=== PATIENT | female | born 1945 | race Caucasian/White ===

== ENCOUNTER 2022-11-06 11:55 | Outpatient (CLI) | payer OTHER, SELFPAY ==
[2022-11-06 18:38] LABS: Anion Gap 5 mmol/L (8-16); Blood Urea Nitrogen 24 mg/dL (7-17); Calcium 9.5 mg/dL (8.4-10.2); Carbon Dioxide 30 mmol/L (22-30); Chloride 102 mmol/L (98-107); Cholesterol 183 mg/dL (0-200); Estimated Glomerular Filt Rate > 60; Glucose 93 mg/dL (65-110); HDL Direct 51 mg/dL; Potassium 4.4 mmol/L (3.4-5.0); Sodium 137 mmol/L (137-145); Triglycerides 69 mg/dL (<150)
[2022-11-06 18:49] LABS: Hematocrit 44.5 % (37.0-47.0); Hemoglobin 13.8 g/dL (12.0-15.0); LDL Cholesterol Direct 100 mg/dL; Mean Corpuscular Hemoglobin 31.7 pg (26-34); Mean Corpuscular Volume 102.1 fl (80-100); Platelet Count Result 217 k/mm3 (150-375); Red Blood Count 4.36 M/mm3 (4.2-5.4); Red Cell Distribution Width 12.8 % (11.5-14.5); White Blood Count 7.7 K/mm3 (4.5-10.0)
== END 2022-11-06 11:56 | disposition home or self-care (01) ==
PROVIDERS: PCP Nurse Practitioner Adult Health; Visit Provider Nurse Practitioner Adult Health
DX: L65.9 Nonscarring hair loss, unspecified (principal); E66.3 Overweight
CPT/HCPCS: 36415; 80048; 80061; 84443; 85027

== ENCOUNTER 2022-12-11 12:57 | Outpatient (CLI) | payer OTHER, SELFPAY ==
--- NOTE | ~2022-12-11 | XR_ITS ---
EXAM: XR_[id number]_CR DATE: 12/11/2022 13:12 HISTORY: RT DORSAL FOOT PAIN X 1 YEAR . COMPARISON: None available. FINDINGS: Decreased mineralization. No fracture or dislocation. No lytic or blastic lesion. Mild lupillo lux valgus. Mild scattered degenerative change. Os navicularis. Mild Achilles and moderate plantar en thesopathy. Mild loss of the longitudinal arch. No erosion or periosteal change. Soft tissues within normal limits. IMPRESSION: Pes planus. Polyarticular osteoarthritis. Hallux valgus. Moderate plantar enthesopathy. Reviewed, dictated and finalized at location K. IMPRESSION: Pes planus. Polyarticular osteoarthritis. Hallux valgus. Moderate p lantar enthesopathy.
== END 2022-12-11 12:58 | disposition home or self-care (01) ==
LOC: ANHBWCIMG 12:59
PROVIDERS: PCP Nurse Practitioner Adult Health; Visit Provider Orthopaedic Surgery
DX: M79.671 Pain in right foot (principal); M21.41 Flat foot [pes planus] (acquired), right foot; M19.071 Primary osteoarthritis, right ankle and foot; M20.11 Hallux valgus (acquired), right foot
CPT/HCPCS: 73630

== ENCOUNTER 2023-04-25 11:40 | Outpatient (CLI) | payer OTHER, SELFPAY ==
[2023-04-25 18:48] LABS: Hematocrit 46.3 % (37.0-47.0); Hemoglobin 14.5 g/dL (12.0-15.0); Mean Corpuscular HGB Conc 31.3 g/dl (32-36); Mean Corpuscular Hemoglobin 31.5 pg (26-34); Mean Corpuscular Volume 100.4 fl (80-100); Platelet Count Result 195 k/mm3 (150-375); Red Blood Count 4.61 M/mm3 (4.2-5.4); Red Cell Distribution Width 12.7 % (11.5-14.5); White Blood Count 5.4 K/mm3 (4.5-10.0)
[2023-04-25 19:35] LABS: Iron 146 ug/dL (37-170)
[2023-04-25 19:44] LABS: Percent Iron Saturation 61 % (20-50)
[2023-04-25 19:45] LABS: Anion Gap 7 mmol/L (8-16); Blood Urea Nitrogen 16 mg/dL (7-17); Calcium 9.1 mg/dL (8.4-10.2); Carbon Dioxide 28 mmol/L (22-30); Chloride 104 mmol/L (98-107); Estimated Glomerular Filt Rate > 60; Glucose 85 mg/dL (65-110); Potassium 4.7 mmol/L (3.4-5.0); Sodium 139 mmol/L (137-145)
[2023-04-25 20:52] LABS: Folic Acid > 20.0 ng/mL (2.76->20)
== END 2023-04-25 11:41 | disposition home or self-care (01) ==
PROVIDERS: PCP Nurse Practitioner Adult Health; Visit Provider Nurse Practitioner Adult Health
DX: L65.9 Nonscarring hair loss, unspecified (principal)
CPT/HCPCS: 36415; 80048; 82607; 82728; 82746; 83540; 83550; 84439; 84443; 85027

== ENCOUNTER 2023-04-30 13:33 | Outpatient (CLI) | payer OTHER, SELFPAY ==
--- NOTE | ~2023-04-30 | XR_ITS ---
EXAM: XR knee LT min 4V DATE: 04/30/2023 13:49 HISTORY: Pain in left knee . COMPARISON: 11/06/2011 MRI left knee. FINDINGS: Decreased mineralization. No fracture or dislocation. No lytic or blastic lesion. Moderate medial joint space narrowing. Moderate tricompartmental osteophytosis. Several ossific bodies projec t over the intercondylar notch. Quadriceps enthesopathy. Small joint effusion. No erosion or perioste al change. Soft tissues within normal limits. IMPRESSION: Moderate tricompartmental left knee osteoarthritis, most severe in the medial compartment . Multiple possible loose joint bodies projecting over the intercondylar notch. Reviewed, dictated and finalized at location K. [employer] IMPRESSION: Moderate tricompartmental left knee osteoarthritis, most severe in the medial compartment. Multiple possible loose joint bodies projecting over th e intercondylar notch.
== END 2023-04-30 13:34 | disposition home or self-care (01) ==
LOC: ANHBWCIMG 13:35
PROVIDERS: PCP Nurse Practitioner Adult Health; Visit Provider Orthopaedic Surgery
DX: M25.562 Pain in left knee (principal); M17.12 Unilateral primary osteoarthritis, left knee
CPT/HCPCS: 73564

== ENCOUNTER 2023-06-03 08:08 | Emergency (ER) | payer OTHER, SELFPAY ==
--- NOTE | ~2023-06-03 | XR_ITS ---
EXAMINATION: XR knee LT 3V DATE: 06/03/2023 08:57 INDICATION: Left knee pain. TECHNIQUE: 3 views of left knee were obtained. COMPARISON: Left knee radiographs 04/30/2023 FINDINGS: Bone alignment is normal. No fracture. There is moderate osteoarthritis of medial compartme nt and mild osteoarthritis of lateral and patellofemoral compartments. No knee joint effusion. IMPRESSION: 1. Moderate left knee osteoarthritis. Reviewed, dictated and finalized at location A. MBLER PIANO
[2023-06-03 08:33] VITALS: BP 112/64; PULSE 72; RESP 18; TEMP 36.7; O2SAT 94
--- NOTE | 2023-06-03 08:37 | ED.LOWEXIN ---
HPI - Extremity Injury (Lower) General Chief Complaint: Extremity Injury, Lower Stated Complaint: left knee gave out on me Time Seen by Provider: 06/03/23 08:13 History of Present Illness HPI Narrative: Patient is a 77-year-old female who presents ER with left knee pain. Reports she is trying to get off the toilet earlier this morning when her left knee gave out. She recently had a corticosteroid injection in the same knee. She has known arthritis. She also thinks she felt a pop. No new swelling or redness. No fevers or chills or sweats. She has pain with bearing weight that is increased from her previous pain. Related Data Home Medications Medication Instructions Recorded Confirmed Biotin [facility] 11/06/22 04/30/23 Collagen Peptides [facility] 11/06/22 04/30/23 Fish oil [facility] 11/06/22 04/30/23 Mag Citrate [facility] 11/06/22 04/30/23 Metronidazole [facility] 11/06/22 04/30/23 Saw [place] [facility] 11/06/22 04/30/23 spironolactone 100 mg tablet 100 mg PO DAILY 11/06/22 04/30/23 Allergies Allergy/AdvReac Type Severity Reaction Status Date / Time No Known Allergies Allergy Unverified 06/03/23 08:40 Review of Systems Constitutional: Constitutional: Reports no additional constitutional complaints Musculoskeletal: Musculoskeletal: Denies myalgias, Reports arthralgias, Denies joint swelling and Denies muscle cramps Integumentary/Breasts: Skin/Breast: Reports system reviewed and no additional complaints, except as docu Neurologic: Reports system reviewed and no additional complaints, except as documented [facility] Past Medical History Medical History (Updated 06/03/23 @ 09:29 by Juan Ortiz MD) Arthritis of knee, left Asthma Left knee pain MCL sprain of left knee Right foot sprain Surgical History Surgical History H/O: hysterectomy (~1993) Hx of cholecystectomy (~1996) Family History Family History Father Family history of malignant neoplasm of brain Mother Family history of malignant neoplasm of breast in first degree relative Sibling Disorder of thyroid Other Family history of alcoholism Social History Social History Smoking status: Former smoker Second hand tobacco smoke exposure: No Alcohol intake: never Substance use: never Lack of Transportation: No Lack of Food: Never True Current Housing: I Have Housing Concerned About Future Housing: No Difficulty Paying Gas/Electric Bills: No Difficulty Paying for Meds: No Currently Unemployed: No Education: Associate Degree Difficulty w/ Childcare or Family Care: No Living arrangements: alone Occupation/Education: occupation 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 HEAD: Normocephalic, atraumatic. ENT: Mucous membranes moist. HEART: Regular rate and rhythm. Normal peripheral pulses. EXTREMITIES: Left knee with no joint line tenderness, varus and valgus stressing normal, no effusion or redness. Bruising left anterior moreno. normal range of motion. SKIN: Warm, dry, no rash. NEURO: Alert and oriented x3. PSYCH: Normal mood and affect. Course Course Emergency Course: Discussed imaging results. Patient would like to try a knee immobilizer. She does not require crutches because she has a walker at home. Likely an arthritis flare. Vital Signs Vital signs: Vital Signs Temperature 98.0 F 06/03/23 08:33 Pulse Rate 72 06/03/23 08:33 Respiratory Rate 18 06/03/23 08:33 Blood Pressure 112/64 06/03/23 08:33 Pulse Oximetry 94 06/03/23 08:33 Oxygen Delivery Room Air 06/03/23 08:33 Temperature 98.0 F 06/03/23 08:33 Pulse Rate 72
[2023-06-03 09:49] VITALS: BP 107/69; PULSE 70; RESP 18; TEMP 36.6; O2SAT 98
== END 2023-06-03 09:51 | disposition home or self-care (01) ==
PROVIDERS: Emergency Provider Emergency Medicine; PCP Nurse Practitioner Adult Health
DX: M17.12 Unilateral primary osteoarthritis, left knee (principal); J45.909 Unspecified asthma, uncomplicated; Z90.710 Acquired absence of both cervix and uterus; Z90.49 Acquired absence of other specified parts of digestive tract; Z87.891 Personal history of nicotine dependence
CPT/HCPCS: 73562; 99283

== ENCOUNTER 2023-10-15 09:40 | Outpatient (CLI) | payer OTHER, SELFPAY ==
--- NOTE | ~2023-10-15 | XR_ITS ---
Clinical Indication: Smoker, asthma PA and lateral views of the chest: Comparison: 02/28/2018 Findings: The lungs are clear, without evidence of focal consolidation or pleural effusion. Cardiome diastinal silhouette is within normal limits. Bones and soft tissues are unremarkable. Impression: Normal chest. Reviewed, dictated and finalized at location . Impression: Normal chest.
== END 2023-10-15 09:41 | disposition home or self-care (01) ==
LOC: ANHBWCIMG 09:41
PROVIDERS: PCP Nurse Practitioner Adult Health; Visit Provider Nurse Practitioner Adult Health
DX: J45.909 Unspecified asthma, uncomplicated (principal)
CPT/HCPCS: 71046

== ENCOUNTER 2024-06-19 09:28 | Emergency (ER) | payer MEDICARE, SELFPAY ==
--- NOTE | 2024-06-19 09:44 | ED_ITS ---
HPI - URI/Sore Throat General Chief Complaint: Upper Respiratory Infection Stated Complaint: chest congestion/ tightness in chest Time Seen by Provider: 06/19/24 09:55 Source: patient, RN notes reviewed and old records reviewed Mode of arrival: ambulatory Limitations: no limitations History of Present Illness HPI Narrative: 78-year-old female presents to the [facility] with complaints of cough, chest congestion that started last night. Patient denies fevers, chest pain. States that when she coughs that her chest gets a little more tighter than normal. Has a history of asthma Did use inhaler, no other treatment prior to arrival Onset (ago): hour(s) (12) Related Data Home Medications ?Medication ?Instructions ?Recorded ?Confirmed ?Last Taken ?Type Biotin [facility] 11/06/22 11/12/23 Unknown History Collagen Peptides [facility] 11/06/22 11/12/23 Unknown History Fish oil [facility] 11/06/22 11/12/23 Unknown History Mag Citrate [facility] 11/06/22 11/12/23 Unknown History Metronidazole [facility] 11/06/22 11/12/23 Unknown History Saw [place] [facility] 11/06/22 11/12/23 Unknown History spironolactone 100 mg tablet 100 mg PO DAILY 11/06/22 11/12/23 Unknown History Allergies Allergy/AdvReac Type Severity Reaction Status Date / Time No Known Allergies Allergy Unverified 06/19/24 09:49 Review of Systems Review of Systems: All systems reviewed & are unremarkable except as noted in HPI and below Constitutional: Constitutional: Reports no additional constitutional complaints ENT: Reports system reviewed and no additional complaints, except as documented Cardiovascular: Cardiovascular: Reports no additional cardiovascular complaints, Denies chest pain and Denies dyspnea Respiratory: Respiratory: Reports as per HPI, Reports chest congestion, Reports cough, Denies dyspnea and Denies wheezing Musculoskeletal: Musculoskeletal: Reports no additional musculoskeletal complaints Integumentary/Breasts: Skin/Breast: Reports system reviewed and no additional complaints, except as docu [facility] Past Medical History Medical History MCL sprain of left knee Arthritis of knee, left Left knee pain Right foot sprain Asthma Surgical History Surgical History Hx of cholecystectomy (~1996) H/O: hysterectomy (~1993) Family History Family History Father Family history of malignant neoplasm of brain Mother Family history of malignant neoplasm of breast in first degree relative Sibling Disorder of thyroid Other Family history of alcoholism Social History Social History Smoking status: Former smoker Second hand tobacco smoke exposure: No Alcohol intake: never Substance use: never Lack of Transportation: No Lack of Food: Never True Current Housing: I Have Housing Concerned About Future Housing: No Difficulty Paying Gas/Electric Bills: No Difficulty Paying for Meds: No Currently Unemployed: No Education: Associate Degree Difficulty w/ Childcare or Family Care: No Living arrangements: alone Occupation/Education: occupation 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 There is no relevant family history perti nent to the patient complaint. Exam Const: General: cooperative, healthy appearing, comfortable, no acute distress, well developed, alert and well nourished Nutritional Appearance: well nourished Orientation/consciousness: patient oriented x3 Limitations: no limitations HENMT: Head: normal to inspection Ears: hearing grossly normal bilaterally, external ears normal, TM's normal bilaterally, EAC's normal, mastoids normal and no periauricular adenopathy Face/Nose/Sinus: Normal external nose present and No nasal discharge present Face and sinus: normal facial exam and face symmetric Mouth: Yes Normal oral and palatal mucosa present, Yes lip normal, Yes tongue normal and Yes moist mucous membranes Throat: posterior oropharynx normal, uvula midline and no uvular edema Eyes: General: appearance normal, both eyes and all related structures Alignment and Position: alignment normal Neck: Neck: normal visual inspection, full ROM, no lymphadenopathy and no meningeal signs Chest: Chest palpation & inspection: normal inspection of the chest Resp: Effort & Inspection: normal respiratory effort and able to speak in complete sentences Auscultation: clear to auscultation bilaterally, no crackles, no rales, no rhonchi and no wheezes Cardio: Rate: regular rate Skin: General skin exam: normal color and no rashes or lesions noted Neuro: General: patient oriented x3, gait normal, moves all extremities and no meningeal signs Cognition (Neuro): normal cognition Speech: normal speech Gait exam (Neuro): Normal gait present Extrem: General: normal to inspection, full ROM, capillary refill normal and normal gait Psych: Appearance: grossly normal and well kempt Mental Status: mental status grossly normal Speech and movement: Normal speech and movement present and Clear speech present Affect: normal affect Attitude: cooperative Course Course Level of Care: Express Care Visit Vital Signs Vital signs: Vital Signs Temperature 97.7 F 06/19/24 09:46 Pulse Rate 86 06/19/24 09:46 Respiratory Rate 16 06/19/24 09:46 Blood Pressure 126/69 06/19/24 09:46 Pulse Oximetry 96 06/19/24 09:46 Oxygen Delivery Room Air 06/19/24 09:46 Temperature 97.7 F 06/19/24 09:46 Pulse Rate 86 06/19/24 09:46 Respiratory Rate 16 06/19/24 09:46 Blood Pressure 126/69 06/19/24 09:46 Pulse Oximetry 96 06/19/24 09:46 Oxygen Delivery Room Air 06/19/24 09:46 Reviewed MDM - URI/Sore Throat MDM Narrative Medical decision making narrative: Patient sitting comfortably in exam room. Nontoxic, vitals stable. Patient in no acute distress. Patient presents with increased cough for the last 12 hours. Did use her inhaler. Patient's flu and COVID negative No acute findings and noted on exam. Lungs were clear. Patient appropriate for outpatient treatment with close follow-up Discharge instructions reviewed with patient, as well as provided in writing per nursing staff. The instructions also include specific and strict return/GO TO THE ER as well as f/u information. All questions have been answered, and the patient deny any further questions with discharge and discharge plan. Some parts of this dictation were generated by voice recognition software and may contain typographical and/or grammatical inaccuracies. Differential Diagnosis Differential diagnosis: Likely upper respiratory infection, otitis media, viral infection, bronchitis and influenza Lab Data Labs: Lab Results 06/19/24 Range/Units 09:46 POC Influenza A Ag Negative (Negative) POC Influenza B Ag Negative (Negative) POC SARS CoV-2 Ag Negative (Negative) Reviewed Critical Care Time Critical Care Time Critical Care Time: No Discharge Plan Discharge Clinical Impression: History of asthma Upper respiratory infection Qualifiers: URI type: unspecified viral URI Qualified Code(s): J06.9 - Acute upper respiratory infection, unspecified Patient Disposition: Home, Self-Care Condition: Stable Instructions: Upper Respiratory Infection (ED) Additional Instructions: Your rapid COVID test were negative Your rapid flu test was negative Use your inhaler every 4-5 hours while awake It is very important to treat your symptoms. Drink plenty of water, Gatorade, Pedialyte, ice pops or Jell-O. -Alternate Tylenol and Motrin per package directions for fever or pain. You can alternate every 4 hours -Antihistamine medication such as Zyrtec/Claritin/Rosario during the day can help improve symptoms. -doing daily nasal irrigations can help relieve pressure your sinuses. Things like a Neti pot -Use Flonase twice a day for 5 days then daily to help reduce the inflammation and dry up your sinuses. -You can also use Mucinex. Be sure to drink plenty of water with this medication at least 8 ounces with every dose and it is important to drink 8 to 10 glasses of water per day. Water is a natural decongestant -Eat and drink things that are easy to swallow, like tea or soup, or popsicles. -Oral rinses such as: Salt water gargles and/or may use topical anesthetic (eg. Chloraseptic spray) or lozenges to relieve dryness or throat pain). -Frequent hand washing or hand auto repair technician is one of the best ways to prevent spread of infection. -Using a vaporizer or humidifier at night will also help thin secretions and help with coughing up phlegm. -Follow up with primary care provider in 7-10 days if condition is not improving - For new or worsening symptoms go directly to the nearest ER Patient Language: Thai Prescriptions: New prednisone 20 mg tablet See Rx Instructions .Route .COMPLEX Qty: 9 0RF Rx Instructions: Take 40 mg daily for 3 days, 20 mg daily for 3 days No Action Fish oil [facility] Rx Instructions: 1400mg Daily Biotin [facility] Rx Instructions: 5000mcg daily spironolactone 100 mg tablet 100 mg PO DAILY [place] [facility] Rx Instructions: daily Mag Citrate [facility] Rx Instructions: 200mg daily Collagen Peptides [facility] Rx Instructions: 10gm Metronidazole [facility] fluticasone propion-salmeterol [Advair Diskus] 250-50 mcg/dose blister with device 1 inh inhalation BID Qty: 60 6RF naproxen 375 mg tablet 375 mg PO BID Qty: 14 0RF tramadol 50 mg tablet 50 mg PO Q6H PRN (Reason: pain) Qty: 30 1RF methocarbamol 500 mg tablet 500 mg PO BID PRN (Reason: muscle cramps) Qty: 20 0RF albuterol sulfate 90 mcg/actuation HFA aerosol inhaler See Rx Instructions .ROUTE .COMPLEX Qty: 18 6RF Dose Instruction: INHALE 2 PUFFS BY MOUTH EVERY 4 TO 6 HOURS NEEDED FOR SHORTNESS OF BREATH OR WHEEZING Rx Instructions: INHALE 2 PUFFS BY MOUTH EVERY 4 TO 6 HOURS NEEDED FOR SHORTNESS OF BREATH OR WHEEZING Follow-up/Referrals: UNKNOWN,DOCTOR [Primary Care Provider] - Time of Disposition: 10:05
[2024-06-19 09:46] VITALS: BP 126/69; PULSE 86; RESP 16; TEMP 36.5; O2SAT 96
[2024-06-19 09:50] LABS: EDCOVIDSCREEN Negative (Negative); EDINFLUASCREEN Negative (Negative); EDINFLUBSCREEN Negative (Negative)
--- OUTSIDE RECORDS SUMMARY | 2024-06-19 09:53 | XMS_ITS | Encounter Summary ---
Author Organization [facility] Address [address] [place] [address] Care Team Providers Care President And Ceo Name Role Phone Torie Waldron MD Primary Care Provider [phone] Reason for Visit * Reason Onset Date Comments Post Op 03/24/2024 Home health comi dhara, no issues: home health seeing patient without problemsPain management: Taking Tramadol twice a day, patient feels tylenol doesn't really help too muchBlood Thinner: taking Aspirin 81 mg twice a day as prescribedLast BM: no issuesPt attended the TJR class. Attended zoom classPt has f/u appointment scheduled with the surgeon.scheduled appointment 03/31/[address] Marie Encounter Details Date Type Department Care Team (Late st Contact Info) Description 03/24/2024 Telephone [facility] [place] [id number] [facility] [address] [place] [id number] Matthew Acosta RN Post Op (Home health coming, no issues: home health seeing patient without problems//Pain management: Taking Tramadol twice a day, patient feels tylenol doesn't really help too much//Blood Thinner: taking Aspirin 81 mg twice a day as prescribed//Last BM: no issues//Pt attended the TJR class. Attended zoom class//Pt has f/u appointment scheduled with the surgeon.scheduled appointment 03/31/[address] Marie) Social History Tobacco Use Types Packs/Day Years Used Date Smoking Tobacco: Former Cigarettes 1 15 - 1976 Smokeless Tobacco: Never Alcohol Use Standard Drinks/Week Comments Not Currently 0 (1 standard drink = 0.6 oz pur e alcohol) Overall Financial Resource Strain (CARDIA) Answe r Date Recorded How hard is it for you to pa y for the very basics like food, housing, medical care, and heating? Not hard at all 03/18/2024 PHQ-2 Answer Date Recorded PHQ-2 Total Score 0 02/11/2024 Housing Answer Date Recorded What is your living situation today? I have a [facility] place to live 03/18/2024 Lives With child(clarence), adult 03/18/2024 Living Arrangements adult family home 03/18/2024 Problems Not on file 03/18/2024 Vaping Answer Date Recorded Vaping Use Status Never user 02/11/2024 IP Discharge Planning Review Answer Amish e Recorded In the past 12 months have y ou experienced difficulty with any of the following? No difficulties reported 03/17/2024 Alcohol Use History Answer Date Recorde d Alcohol use Not Currently 03/13/2024 Alcohol/week (standard drinks) Not on File 1 05/14/2023 Abuse Screen Answer Date Recorded We ask all patients, do you feel safe in your living/school environment? Patient denies concerns 03/17/2024 Patient shows signs of physi trista or sexual abuse, medical neglect, untreated STI s and or torture No 03/17/2024 Comments No Sex and Gender Information Value Date Recorded Sex Assigned at Not on file Legal Sex Female 3:09 PM PST Gender Identity Not on file Sexual Orientation Not on file documented as of this encounter Functional Status * Are you deaf or do you have serious difficulty hearing? Answer Date of Assessment Author No 03/18/2024 11:01 AM Chinmay Simpson RN * Are you blind or do you have serious difficulty seeing, even when wearing glasses? Answer Date of Assessment Author No 03/18/2024 11:01 AM Chinmay Simpson RN * Do you have serious difficulty walking or climbing stairs? (5 years old or older) Answer Date of Assessment Author No 03/18/2024 11:01 AM Chinmay Simpson RN * Do you have difficulty dressing or bathing? (5 years old or older) Answer Date of Assessment Author No 03/18/2024 11:01 AM Chinmay Simpson RN * Because of a physical, mental, or emotional condition, do you have difficulty doing errands alone such as visiting a doctor's office or shopping? [15 years old or older)] Answer Date of Assessment Author No 03/18/2024 11:01 AM PST documented as of this encounter Mental Status * Because of a physical, mental, or emotional condition, do you have serious difficulty concentrating, remembering, or making decisions? (5 years old or older) Answer Entry Date Author No 03/18/2024 11:01 AM PST Chinmay Sullivan RN documented in this encounter Plan of Treatment Upcoming Encounters Date Type Department Care Team (Late st Contact Info) Description 08/11/2024 4:00 PM PDT Office Visit [facility] [place] [address] [place] [address] [phone] [place] [address] [place] [id number] documented as of this encounter Visit Diagnoses Not on filedocumented in this encounter Additional Health Concerns Assessment Noted Time A fall risk assessment has been complete d for the patient 02/11/2024 4:11 PM PST PHQ-2 Depression Total Score: 0 03/20/20 24 6:25 AM PST documented as of this encounter Care Teams President And Ceo Relationship Specialty [place] [address] [place] [address] PCP - General Family Medicine 02/11/24 documented as of this encounter
--- OUTSIDE RECORDS SUMMARY | 2024-06-19 09:53 | XMS_ITS | Referral Summary ---
Author Organization [facility] Address [address] [place] [address] Care Team Providers Care Dandy Operator Name Role Phone Torie Waldron MD Primary Care Provider [phone] Encounters Date Type Department Care Team Description 06/02/2024 Travel 06/02/2024 2:00 PM PST Initial consult [facility] [address] [id number] [facility] [address] [place] [phone] Clifton Hassan MD Systolic murmur (Primary Dx); RBBB; History of tobacco use; S/P TKR (total knee replacement), left 05/27/2024 Travel 05/27/2024 2:37 PM PST - 05/27/2024 11:59 PM PST Hospital Encounter [facility] OUTPATIENT PHYSICAL THERAPY [address] [facility] [address] [place] [phone] Uziel Marie MD Thomson, Maihri E, PT S/P TKR (total knee replacement), left (Primary Dx) Discharge Disposition: Home or Self Care 05/21/2024 Travel 05/21/2024 3:05 PM PST - 05/21/2024 11:59 PM PST Hospital Encounter [facility] OUTPATIENT PHYSICAL THERAPY [address] [facility] [address] [place] [phone] Uziel Marie MD Thomson, Maihri E, PT S/P TKR (total knee replacement), left (Primary Dx) Discharge Disposition: Home or Self Care 05/13/2024 Travel 05/13/2024 2:52 PM PST - 05/13/2024 11:59 PM PST Hospital Encounter [facility] OUTPATIENT PHYSICAL THERAPY [id number] [address] Uziel Marie MD Thomson, Maihri E, PT S/P TKR (total knee replacement), left (Primary Dx) Discharge Disposition: Home or Self Care 05/02/2024 Travel 05/02/2024 12:54 PM PST - 05/02/2024 11:59 PM PST Hospital Encounter [facility] OUTPATIENT PHYSICAL THERAPY [address] [address] Uziel Marie MD 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, 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, 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 S/P TKR (total knee replacement), left (Primary Dx) Discharge Disposition: Home or Self Care 04/29/2024 Travel 04/29/2024 1:57 PM PST - 04/29/2024 11:59 PM PST Hospital Encounter [facility] OUTPATIENT PHYSICAL THERAPY [address] [phone] Uziel Marie MD Thomson, Maihri E, PT S/P TKR (total knee replacement), left (Primary Dx) Discharge Disposition: Home or Self Care 04/25/2024 Travel 04/25/2024 12:34 PM PST - 04/25/2024 11:59 PM PST Hospital Encounter [facility] OUTPATIENT PHYSICAL THERAPY [id number] [address] Uziel Marie MD 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, 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, 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 S/P TKR (total knee replacement), left (Primary Dx) Discharge Disposition: Home or Self Care 04/24/2024 Home Care Visit [address] [address] Ana Blair LVN CASE COMMUNICATION 04/22/2024 Travel 04/22/2024 1:39 PM PST - 04/22/2024 11:59 PM PST Hospital Encounter [facility] OUTPATIENT PHYSICAL THERAPY [id number] [address] Uziel Marie MD Thomson, Maihri E, PT S/P TKR (total knee replacement), left (Primary Dx) Discharge Disposition: Home or Self Care 04/18/2024 Travel 04/18/2024 12:46 PM PST - 04/18/2024 11:59 PM PST Hospital Encounter [facility] OUTPATIENT PHYSICAL THERAPY [id number] [address] Uziel Marie MD 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, 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, 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 S/P TKR (total knee replacement), left (Primary Dx) Discharge Disposition: Home or Self Care 04/15/2024 Travel 04/15/2024 2:06 PM PST - 04/15/2024 11:59 PM PST Hospital Encounter [facility] OUTPATIENT PHYSICAL THERAPY [id number] [address] Uziel Marie MD Thomson, Maihri E, PT S/P TKR (total knee replacement), left (Primary Dx) Discharge Disposition: Home or Self Care 04/07/2024 Plan of Care Documentation [facility] OUTPATIENT PHYSICAL THERAPY [id number] [address] 04/07/2024 Travel 04/07/2024 12:32 PM PST - 04/07/2024 11:59 PM PST Hospital Encounter [facility] OUTPATIENT PHYSICAL THERAPY [id number] [address] Uziel Marie MD Thomson, Maihri E, PT S/P TKR (total knee replacement), left (Primary Dx) Discharge Disposition: Home or Self Care 04/03/2024 3:00 AM PST Home Care Visit [address] [address] [place], PT PT DISCHARGE (OASIS) 03/31/2024 Home Care Visit [address] [address] Rosenda Grimaldo, RN CASE COMMUNICATION 03/28/2024 11:00 AM PST Home Care Visit [address] [address] [place], PT PT REPEAT VISIT 03/24/2024 Telephone [facility] [place] [address] [facility] [address] [place] [address] Matthew Acosta, CHANO Post Op (Home health coming, no issues: home health seeing patient without problems//Pain management: Taking Tramadol twice a day, patient feels tylenol doesn't really help too much//Blood Thinner: taking Aspirin 81 mg twice a day as prescribed//Last BM: no issues//Pt attended the TJR class. Attended zoom class//Pt has f/u appointment scheduled with the surgeon.scheduled appointment 03/31/[address] Marie) 03/24/2024 11:00 AM PST Home Care Visit [address] [address] [place], PT PT REPEAT VISIT from Last 3 Months Allergies No known active allergies Medications fluticasone-salm eterol (ADVAIR, WIXELA INHUB) 100-50 mcg/puff diskus inhaler Inhale 1 puff into the lungs PRN. Active albuterol 90 mcg/puff inhaler PRN. Act ara fluticasone (FLONASE) 50 mcg/nasal spray 1 spray by Each Nare route as needed. 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 Echocardiogram History of tobacco use 06/02/2024 Assessment & Plan (06/02/2024 2:48 PM PST): Remote tobacco use S/P TKR (total knee replacement), left Assessment & Plan (06/02/2024 2:48 PM PST): Abnl preop EKG (RBBB) Rotator cuff tendonitis, left 03/10/2024 Assessment & Plan (03/13/2024 12:32 PM PST): Senile purpura 03/10/2024 Assessment & Plan (03/13/2024 12:32 PM PST): Class 1 obesity due to exces s calories with body mass index (BMI) of 32.0 to 32.9 in adult 03/10/2024 Assessment & Plan (03/13/2024 12:32 PM PST): Orders: Hemoglobin A1C Dysfunction of both eustachian tubes 03/10/2024 Assessment & Plan (03/13/2024 12:32 PM PST): RBBB 03/10/2024 Assessment & Plan (06/02/2024 2:47 PM PST): Reviewed finding Stable dating back at least to 05/17 EKG Reviewed w pt; discussed probable benign nature of this Assessment & Plan (03/13/2024 12:32 PM PST): Orders: * AMB REFERRAL TO [facility] Asthma 02/11/2024 Assessment & Plan (02/11/2024 5:04 PM PST): Resolved Problems Problem Noted Date Diagnosed Date Resolved Date FH: total knee replacement 02/11/2024 1 04/12/2023 Overview (02/11/2024): Need to meet with surgeon Positive colorectal cancer s creening using Cologuard test 03/15/2021 02/11/2024 Overview (02/11/2024): Added automatically from request for surgery [id number] Laryngopharyngeal reflux (LPR) 05/30/2018 02/11/2024 Diverticulitis 07/10/2016 02/11/2024 H/O: hysterectomy 07/10/2016 02/11/2024 Irregular heart beat 07/10/2016 024 Overview (02/11/2024): Cardio: [facility] Immunizations Name Administration Dates Next Due INFLUENZA PF 65Y+ HIGH DOSE, TRIVALENT 0,02/07/2017,01/28/2016 INFLUENZA PF 65Y+ QUADRIVALENT HIGH-DOSE 021 INFLUENZA PF, QUADRIVALENT 12/04/2019 INFLUENZA, UNSPECIFIED FORMULATION 04/02/2011 PCV10 Pneumococcal (Non-us) 05/03/2012 PNEUMOCOCCAL CONJUGATE 20-VALENT (PCV20) 024 PNEUMOCOCCAL, UNSPECIFIED FORMULATION 05/03/2012 Social History Tobacco Use Types Packs/Day Years Used Date Smoking Tobacco: Former Cigarettes 1 15 1 - 1976 Smokeless Tobacco: Never Tobacco Cessation:Counseling Given: Not Answered Alcohol Use Standard Drinks/Week Comments Not Currently 0 (1 standard drink = 0.6 oz pur e alcohol) Overall Financial Resource Strain (CARDIA) Answe r Date Recorded How hard is it for you to pa y for the very basics like food, housing, medical care, and heating? Not hard at all 03/18/2024 PHQ-2 Answer Date Recorded PHQ-2 Total Score 0 06/02/2024 Housing Answer Date Recorded What is your living situation today? I have a st [place] place to live 03/18/2024 Lives With child(clarence), [...] on file Sexual Orientation Not on file Last Filed Vital Signs Vital Sign Reading Time Taken Comments Blood Pressure 117/68 06/02/2024 1:44 PM PST left arm Pulse 74 06/02/2024 1:44 PM PST Temperature 36.6 C (97.8 F) 03/28/2024 12:00 PM PST Respiratory Rate 16 03/28/2024 12:0 0 PM PST Oxygen Saturation 95% 06/02/2024 1:4 4 PM PST right index finger Inhaled Oxygen Concentration - - Weight 85.7 kg (189 lb) 06/02/2024 1:44 PM PST Height 162.6 cm (5' 4 ) 06/02/2024 1:44 PM PST Body Mass Index 32.44 06/02/2024 1:44 PM PST Functional Status * Are you deaf or [...] of Assessment Author No 03/18/2024 11:01 AM STELLA Mental Status * Because of a physical, mental, or emotional condition, do you have serious difficulty concentrating, remembering, or making decisions? (5 years old or older) Answer Entry Date Author No 03/18/2024 11:01 AM Chinmay Simpson RN Plan of Treatment Upcoming Encounters Date Type Department Care Team (Late st Contact Info) Description 08/11/2024 4:00 PM PDT [facility] [address]ne [address] [place] [address] [place] [address] [place] [address] Medical Devices Implanted Type Area Auto Painter Helper Device Identifier Shelf Expiration Date Model / Serial / Lot Imp Knee Fem Cr Lt Sz9 - [id number] Implanted:Qty: 1 on 03/17/2024 by Uziel Marie MD at [facility] Generic Left: Knee [employer]-9643 04/30/2033 [id number] / / [id number] Imp Knee Surf Artc L 10 8-11ab - [id number] Implanted:Qty: 1 on 03/17/2024 by Uziel Marie MD at [facility] Generic Left: Knee [employer]ET-9643 12/12/2028 [id number] / / [id number] Patella Component Knee 3 Peg Metal Persona Osseoti [id number] - [id number] Implanted:Qty: 1 on 03/17/2024 by Uziel Marie MD at [facility] Left: Knee [employer]ET-9643 11/30/2028 [id number] / / [id number] Tibial Baseplate Knee Porous Left Fixed Persona [employer]seoti [id number] - [id number] Implanted:Qty: 1 on 03/17/2024 by Uziel Marie MD at [facility] Left: Knee [employer]ET-9643 12/31/2033 [id number] / / [id number] Procedures Procedure Name Priority Date/Time Associated Diagnosis Comments BASIC METABOLIC PANEL Routine 03/18/2024 5:20 AM [facility] from Last 3 Months or Most Recently Relevant to Health Maintenance Results * (ABNORMAL) Basic Metabolic Panel (03/18/2024 5:20 AM PST) Na 140 136 - 145 mmol/L 03/18/2024 6:54 AM [facility] (CLIA [id number]) K 4.9 3.5 - 5.1 mmol/L 03/18/2024 6:54 AM [facility] (CLIA [id number]) Cl 112(H) 98 - 107 mmol/L 03/18/2024 6:54 AM [facility] (CLIA [id number]) CO2 26 21 - 32 mmol/L 03/18/2024 6:54 AM [facility] (CLIA [id number]) Comment:CO2 is interchangeab le with HCO3- (bicarbonate) for calculation of the anion gap. Anion Gap 2(L) 5 - 13 mmol/L 03/18/2024 6:54 AM [facility] (CLIA [id number]) Glucose 149(H) 74 - 106 mg/dL 03/18/2024 6:54 AM [facility] (CLIA [id number]) BUN 11 7 - 18 mg/dL 03/18/2024 6:54 AM [facility] (CLIA [id number]) Creatinine 0.76 0.60 - 1.30 mg/dL 03/18/2024 6:54 AM [facility] (CLIA [id number]) Calcium 9.0 8.5 - 10.1 mg/dL 03/18/2024 6:54 AM [facility] (CLIA [id number]) BUN/Creatinine Ratio 14.5 03/18/2024 6:54 AM [facility] (CLIA [id number]) eGFR 81 >=60 mL/min/1. 73m2 03/18/2024 6:54 AM [facility] (CLIA [id number]) Comment: GFR value was calculated using a new GFR equation effective since 04/19/21. This is a recommendation of the [place] [employer]ph[employer] and National Kidney Foundation. Clinical practice guidelines suggest the use of serum cystatin C as a confirmatory test for eGFR 45-59 ml/min/1.73m2 in adults who do not have markers of kidney disease; eGFR may be less accurate in this range. Blood Venipuncture / Unknown 03/18/2024 5:20 AM PST 03/18/2024 6:06 AM [facility] Rashi Castaneda MD LAB BLOOD ORDERABLES Final Res ult [facility] ([place] [id number]) [address] [phone] from Last 3 Months or Most Recently Relevant to Health Maintenance Insurance PMF [employer] Advance Directives * Full Code (Latest Code Status on File) Date Activated Date Inactivated Comments 03/17/2024 7:21 PM 03/18/2024 2:35 PM Care Teams Dandy Operator Relationship Specialty [place] [address] [place] [address] PCP - General Family Medicine 02/11/24
--- OUTSIDE RECORDS SUMMARY | 2024-06-19 09:53 | XMS_ITS | Encounter Summary ---
Author Organization [facility] Address [address] [place] [address] Care Team Providers Care Drying Tunnel Operator Name Role Phone Torie Waldron MD Primary Care Provider [phone] Reason for Visit * Reason Onset Date Comments Pre-Op 02/26/2024 Encounter Details Date Type Department Care Team (Late st Contact Info) Description 02/26/2024 Telephone [facility] - [place] [address] [place] [address] [phone] [place] [address] [place] [address] Pre-Op Social History Tobacco Use Types Packs/Day Years Used Date Smoking Tobacco: Former Cigarettes 1 15 1 2 - 1976 Smokeless Tobacco: Never PHQ-2 Answer Date Recorded PHQ-2 Total Score 0 02/11/2024 Vaping Answer Date Recorded Vaping Use Status Never user 02/11/2024 Comments No Sex and Gender Information Value Date Recorded Sex Assigned at Not on file Legal Sex Female 3:09 PM PST Gender Identity Not on file Sexual Orientation Not on file documented as of this encounter Miscellaneous Notes * Telephone Encounter - Jeanine Mirza - 02/26/2024 11:22 AM PST S/w patient and scheduled 03/10/24 @ 10am. Pt will fax pre op orders to us soon. Fax number confirmed. * Telephone Encounter - Rowan Yoo - 02/26/2024 11:11 AM PST Message for Dr Waldron PreOp visit needed. Patient will be having total joint replacement; Surgery date 03/17/24; Dr Marie.Labs , chest xray and EKG needed. Informed patient to have office fax over surgeon's orders. Caller did not have name of Coordinator Office PH: [phone] PH: [phone] documented in this encounter Plan of Treatment Upcoming Encounters Date Type Department Care Team (Late st Contact Info) Description 08/11/2024 4:00 PM PDT Office Visit [facility] [place] [address] [place] [address] [phone] [place] [address] [place] [address] [place] [address] documented as of this encounter Visit Diagnoses Not on filedocumented in this encounter Additional Health Concerns Assessment Noted Time A fall risk assessment has been complete d for the patient 02/11/2024 4:11 PM PST PHQ-2 Depression Total Score: 0 02/11/20 4:11 PM PST documented as of this encounter Care Teams Drying Tunnel Operator Relationship Specialty Start [place] [address] [place] [address] [place] [address] PCP - General Family Medicine 02/11/24 documented as of this encounter
--- OUTSIDE RECORDS SUMMARY | 2024-06-19 09:53 | XMS_ITS | Clinical Summary ---
Author Organization [facility] Address [address] [place] [address] Care Team Providers Care Mental Health Professional Name Role Phone Unavailable Primary Care Provider Unavailabl e Allergies Active Allergy Reactions Criticality Noted Date Comments Other Rash Medium 09/08/2022 PLASTICS Medications albuterol HFA (PROVENTIL HFA;VENTOLIN HFA) 90 mcg/actuation inhaler INHALE 1 TO 2 PUFFS BY MOUTH EVERY 4 TO 6 HOURS NEEDED RINSE MOUTH OUT AFTER USE Active azithromycin (ZITHROMAX) 500 mg tablet TAKE 1 TABLET BY MOUTH ONCE DAILY FOR 5 DAYS Active benzonatate (TESSALON) 200 mg capsule Take 200 mg by mouth. 2 Active fluticasone propion-salmete roL (ADVAIR DISKUS) 100-50 mcg/dose diskus inhaler Inhale 1 puff. Activ e methylPREDNISol one (MEDROL DOSPAK) 4 mg tablet TAKE BY MOUTH DIRECTED ON INSIDE OF PACKAGE 3 Active metroNIDAZOLE (METROCREAM) 0.75 % cream APPLY CREAM TOPICALLY TWICE DAILY TO ROSACEA Active spironolactone (ALDACTONE) 100 mg tablet Take 100 mg by mouth 1 (one) time each day. Active Active Problems No known active problems Social History Tobacco Use Types Packs/Day Years Used Date Smoking Tobacco: Never Assessed Comments Unknown Sex and Gender Information Value Date Recorded Sex Assigned at Not on file Legal Sex Female 3:33 PM PDT Gender Identity Not on file Sexual Orientation Not on file Plan of Treatment Health Maintenance Due Date Last Done Comments Dental Oral Exam 1945 Dental Prophylaxis 1945 Dental X-Ray: Bitewings 1945 Dental X-Ray: Full Mouth 1945 Dental X-Ray: Panoramic 1945 Meningococcal B Vaccine Aged Out No l onger eligible based on patient's age to complete this topic Insurance [place] [id number]
--- OUTSIDE RECORDS SUMMARY | 2024-06-19 09:53 | XMS_ITS | CONTINUITY OF CARE DOCUMENT ---
Author Name jett frausto Address Unknown Organization [facility] Address [address] [facility] [address] [place] [address] Phone [phone] Care Team Providers Care Tank Car Cleaner Name Role Phone Amor MONTES DE OCA, Roberta Unavailable [phone] Julianna Olguin Md Unavailable Julianna Olguin Md Unavailable [phone] PROBLEMS Condition Status Date Provider Notes Asthma active Roberta Chinchilla MD Abnormal electrocardiogram active Roberta kemp MD Fatigue active Roberta Chinchilla MD Palpitations few pvcs on holter active Fritz Chinchilla MD Shortness of breath nl nuclear stress test active 2014 Roberta Chinchilla MD ENCOUNTERS Date Type Provider Location Encounter Diag nosis - In-person encounter Office Visit Roberta Chinchilla MD [facility] Fatigue - In-person encounter Office Visit Roberta Chinchilla MD [facility] Shortness of breath nl nuclear stress testPalpitations few pvcs on holter - In-person encounter Office Visit Roberta Chinchilla MD [facility] Shortness of breath nl nuclear stress testAsthmaAbnormal electrocardiogramPalpitations few pvcs on holter VITAL SIGNS Date Observation Value Provider blood pressure, diastolic 64 mm[Hg] Jonathan Bonilla blood pressure, systolic 110 mm[Hg] Kayla Bonilla pulse rate 94 /min Octaviano Bonilla oxygen saturation, oximetry 95 % Octaviano Bonilla respiratory rate E&M 20 /min Octaviano Bonilla Body Mass Index (Ratio) 31.36 kg/m2 Moi Browndney weight E&M 191.4 [lb_av] Octaviano Bonilla Body Mass Index (Ratio) 31.62 kg/m2 Eric araujo O'Ignacio blood pressure, diastolic 62 mm[Hg] Qing damon O'Ignacio blood pressure, systolic 114 mm[Hg] Concha dahl O'Ignacio pulse rate 82 /min Laxmi O'Ignacio oxygen saturation, oximetry 97 % Laxmi O'Ignacio respiratory rate E&M 16 /min Laxmi Dozier'Ignacio weight E&M 193 [lb_av] Laxmi DozierIgnacio blood pressure, diastolic 56 mm[Hg] Jonathan Bonilla blood pressure, systolic 112 mm[Hg] Kayla Bonilla pulse rate 79 /min Octaviano Browndney oxygen saturation, oximetry 97 % Octaviano Bonilla respiratory rate E&M 18 /min Octaviano Browndney weight E&M 195.4 [lb_av] Octaviano Browndney height E&M 65.5 [in_i] Octaviano Browndney ALLERGIES No Known Drug Allergies RESULTS Date Observation Value Provider Reference Range Interpretation Location 3 thyroid stimulating hormone, serum 2.540 ??IU/ML [facility] 0.270 - 4.200 3 very low density lipoproteins 22.0 mg/dL [facility] 5.0 - 40.0 3 LDL/HDL (low-density lipoprotein/high-den sity lipoprotein) ratio 1.8 RATIO [facility] - 3 lipoprotein, beta, serum, point, quantitative, calculated 105.0 (?) [facility] 0.0 - 100.0 High 3 HDL cholesterol, serum 60.0 mg/dL [facility] 45.0 - 65.0 3 cholesterol, serum 187.0 mg/dL [facility] 0.0 - 200.0 3 triglyceride, serum, fasting 110.0 mg/dL [facility] 0.0 - 150.0 3 anion gap, serum 15.3 [facility] - 3 albumin/globulin ratio, serum 2.9 g/dL [facility] 1.1 - 2.5 High 3 globulin, serum 2.3 [facility] 2.3 - 3.8 3 urea nitrogen/creatinine ratio, serum 24.4 [facility] - 3 Estimated Glomerular Filtration Rate (calc) 66.2 (?) [facility] 59.0 - 3 chloride, serum 106.7 mmol/L [facility] 98.0 - 107.0 3 potassium, serum 4.4 mmol/L [facility] 3.5 - 5.1 3 sodium, serum 146.0 mmol/L [facility] 136.0 - 145.0 High 3 creatinine, serum 0.9 mg/dL [facility] 0.5 - 1.0 3 carbon dioxide, venous blood 24.0 mmol/L [facility] 23.0 - 31.0 3 albumin, serum 4.4 g/dL [facility] 3.5 - 5.2 3 calcium, serum 9.8 mg/dL [facility] 8.6 - 10.2 3 aspartate aminotransferase (SGOT), serum 19.0 1/L [facility] 0.0 - 32.0 3 alkaline phosphatase, serum 65.0 1/L [facility] 40.0 - 130.0 3 alanine aminotransferase (SGPT), serum 25.0 1/L [facility] 0.0 - 33.0 3 protein, total, serum 6.7 g/dL [facility] 6.6 - 8.7 3 bilirubin, serum, total 0.6 mg/dL [facility] 0.0 - 1.2 3 urea nitrogen, blood 22.0 mg/dL [facility] 8.0 - 23.0 3 blood glucose, random 116.0 mg/dL [facility] 74.0 - 99.0 High 3 red blood cell distribution width, size density 49.2 fL [facility] - 3 immature granulocytes, percentage of total cells, blood 0.4 % [facility] - 3 nucleated red blood cells as percent of blood leukocytes 0.0 % [facility] - 3 red blood cell (erythrocyte) count, per high power field 0.0 10*3/UL [facility] - 3 eosinophils as percent of blood leukocytes 4.1 % [facility] - 3 neutrophils as percent of blood leukocytes 68.7 % [facility] - 3 Absolute Neutrophils 5.6 CELLS/UL [facility] 1.5 - 7.8 3 basophils as percent of blood leukocytes 1.5 % [facility] - 3 Absolute Basophils 0.1 CELLS/UL [facility] 0.0 - 0.2 3 monocytes as percent of blood leukocytes 8.2 % [facility] - 3 Absolute Monocytes 0.7 CELLS/UL [facility] 0.2 - 1.0 3 lymphocytes as percent of blood leukocytes 17.1 % [facility] - 3 Absolute Lymphocytes 1.4 CELLS/UL [facility] 0.9 - 3.9 3 mean platelet volume 11.3 (?) [facility] - 3 platelet count 220.0 THOUSAND/ UL [facility] 100.0 - 400.0 3 mean corpuscular hemoglobin concentration, RBC 30.6 G/DL [facility] 31.0 - 38.0 Low 3 mean corpuscular hemoglobin, RBC 30.7 pg [facility] 25.0 - 35.0 3 mean corpuscular volume, RBC 100.2 fL [facility] 75.0 - 100.0 High 3 hematocrit, blood 43.8 % [facility] 35.0 - 55.0 3 hemoglobin, blood 13.4 g/dL [facility] 11.5 - 16.5 3 erythrocyte count, whole blood 4.4 MILLION/U L [facility] 3.5 - 5.5 3 hemoglobin A1C, blood, as % of total hemoglobin 5.0 % [facility] 4.0 - 6.0 HISTORY OF MEDICATION USE Medication Status Instructions Dates Provider Indications Com ments ASPIRIN 81 MG ORAL TABLET active ONE TAB. DAILY Roberta Chinchilla MD ADVAIR DISKUS 100-50 MCG/DOSE INHALATION AEROSOL POWDER BREATH ACTIVATED active one puff twice a day Nena Mckeon RN SOCIAL HISTORY Date Observation Value Provider social history reviewed E&M revi ewed - no changes required Roberta Chinchilla MD social history reviewed E&M revi ewed - no changes required Roberta Chinchilla MD smoking status Former smoker Laxmi Mayo betts social history reviewed E&M revi ewed - no changes required Roberta Chinchilla MD smoking, year quit 1976 JonathanEstellajada woodard smoking, date started 1961 Kaylajada Bonilla smoking history, total pack/day 2 Octaviano Bonlila cigarette use yes JonathanEstellajada Bonilla smoking status Former smoker Kaylaascencioncassidy Emmy finn FAMILY HISTORY Family Member Condition Mother Family History Unkno wn Daughter Negative FH of Coron tom Artery Disease INSURANCE PROVIDERS Payer name Policy type / Coverage type [place] red libertarian ID [place] MED[place] Medicare [id number] TREATMENT PLAN Date Name Performer Cardiology Roberta Chinchilla MD Cardiology Roberta Chinchilla MD Cardiology Roberta Chinchilla MD Cardiology Roberta Chinchilla MD fu: H er updated medication list for this problem includes: Advair Diskus 100-50 Mcg/dose Inh Aepb (Fluticasone-salmeterol) ..... One puff twice a day Pulmonary Functions Reviewed: O 2 sat: 97 (06/05/2014) Roberta Chinchilla MD NEW PT: H er updated medication list for this problem includes: Advair Diskus 100-50 Mcg/dose Inh Aepb (Fluticasone-salmeterol) ..... Take as directed Pulmonary Functions Reviewed: O 2 sat: 97 (05/22/2014) Roberta Chinchilla MD Date Name TSH, 3RD GENERATION W/REFLEX TO FT4 HEMOGLOBIN A1c LIPID PANEL COMPREHENSIVE METABO LIC PANEL W/EGFR CBC (INCLUDES DIFF/P LT) HISTORY OF PROCEDURES Procedure Date Procedure Name Provider Procedure Notes S tatus SNOMED-CT: 04712952 Physical Exam, Performed: Pulse Exam of Foot Roberta Chinchilla MD completed SNOMED-CT: 72721260 Physical Exam, Performed: Pulse Exam of Foot Roberta Chinchilla MD completed EKG Roberta Chinchilla MD completed SNOMED-CT: 029589635 [id number] Current Medications Documented Roberta Chinchilla MD completed EKG Roberta Chinchilla MD completed
--- OUTSIDE RECORDS SUMMARY | 2024-06-19 09:53 | XMS_ITS | Clinical Summary ---
Author Organization [facility] Address [address] [place] [address] Care Team Providers Care Bench Worker Binding Name Role Phone Torie Waldron MD Primary Care Provider [phone] Allergies No known active allergies Medications fluticasone-salm [...] PM PST): Orders: * AMB REFERRAL TO [facility] Asthma 02/11/2024 Assessment & Plan (02/11/2024 5:04 PM PST): Resolved Problems Problem Noted Date Diagnosed Date Resolved Date FH: total knee replacement 02/11/2024 1 04/12/2023 Overview (02/11/2024): Need to meet with surgeon Positive colorectal cancer s creening using Cologuard test 03/15/2021 02/11/2024 Overview (02/11/2024): Added automatically from request for surgery [id number] Laryngopharyngeal reflux (LPR) 05/30/2018 02/11/2024 Diverticulitis 07/10/2016 02/11/2024 H/O: hysterectomy 07/10/2016 02/11/2024 Irregular heart beat 07/10/2016 024 Overview (02/11/2024): Cardio: [facility] Encounters Date Type Department Care Team Description 06/02/2024 2:00 PM PST Initial consult [facility] [address] [id number] [facility] [address] [place] [address] Clifton Hassan MD Systolic murmur (Primary Dx); RBBB; History of tobacco use; S/P TKR (total knee replacement), left 06/02/2024 Travel 05/27/2024 2:37 PM PST - 05/27/2024 11:59 PM PST Hospital Encounter [facility] [address] [facility] [address] [place] [address] Uziel Marie MD Thomson, Maihri E, PT S/P TKR (total knee replacement), left (Primary Dx) Discharge Disposition: Home or Self Care 05/27/2024 Travel 05/21/2024 3:05 PM PST - 05/21/2024 11:59 PM PST Hospital Encounter [facility] [address] [address] Uziel Marie MD Thomson, Maihri E, PT S/P TKR (total knee replacement), left (Primary Dx) Discharge Disposition: Home or Self Care 05/21/2024 Travel 05/13/2024 2:52 PM PST - 05/13/2024 11:59 PM PST Hospital Encounter [facility] [address] [address] Uziel Marie MD Thomson, Maihri E, PT S/P TKR (total knee replacement), left (Primary Dx) Discharge Disposition: Home or Self Care 05/13/2024 Travel 05/02/2024 12:54 PM PST - 05/02/2024 11:59 PM PST Hospital Encounter [facility] [address] [address] Uziel Marie MD Morrow, Emma M, CRYPTOLOGIC SUPPORT SPECIALIST S/P TKR (total knee replacement), left (Primary Dx) Discharge Disposition: Home or Self Care 05/02/2024 Travel 04/29/2024 1:57 PM PST - 04/29/2024 11:59 PM PST Hospital Encounter [facility] [address] [address] Uziel Marie MD Thomson, Maihri E, PT S/P TKR (total knee replacement), left (Primary Dx) Discharge Disposition: Home or Self Care 04/29/2024 Travel 04/25/2024 12:34 PM PST - 04/25/2024 11:59 PM PST Hospital Encounter [facility] [id number] [address] Uziel Marie MD Morrow, Emma M, CRYPTOLOGIC SUPPORT SPECIALIST S/P TKR (total knee replacement), left (Primary Dx) Discharge Disposition: Home or Self Care 04/25/2024 Travel 04/24/2024 Home Care Visit [address] [address] Ana Blair LVN CASE COMMUNICATION 04/22/2024 1:39 PM PST - 04/22/2024 11:59 PM PST Hospital Encounter [facility] [address] [phone] Uziel Marie MD Thomson, Maihri E, PT S/P TKR (total knee replacement), left (Primary Dx) Discharge Disposition: Home or Self Care 04/22/2024 Travel 04/18/2024 12:46 PM PST - 04/18/2024 11:59 PM PST Hospital Encounter [facility] [address] [address] Uziel Marie MD Morrow, Emma M, CRYPTOLOGIC SUPPORT SPECIALIST S/P TKR (total knee replacement), left (Primary Dx) Discharge Disposition: Home or Self Care 04/18/2024 Travel 04/15/2024 2:06 PM PST - 04/15/2024 11:59 PM PST Hospital Encounter [facility] [address] [address] Uziel Marie MD Thomson, Maihri E, PT S/P TKR (total knee replacement), left (Primary Dx) Discharge Disposition: Home or Self Care 04/15/2024 Travel 04/07/2024 12:32 PM PST - 04/07/2024 11:59 PM PST Hospital Encounter [facility] [address] [address] Uziel Marie MD Thomson, Maihri E, PT S/P TKR (total knee replacement), left (Primary Dx) Discharge Disposition: Home or Self Care 04/07/2024 Plan of Care Documentation [facility] [address] [address] 04/07/2024 Travel 04/03/2024 3:00 AM PST Home Care Visit [address] [address] New Arreola, PT PT DISCHARGE (OASIS) 03/31/2024 Home Care Visit [address] [address] Rosenda Grimaldo, CHANO CASE COMMUNICATION 03/28/2024 11:00 AM PST Home Care Visit [address] [address] New Arreola, PT PT REPEAT VISIT 03/24/2024 11:00 AM PST Home Care Visit [address] [place] [address] New Arreola, PT PT REPEAT VISIT 03/24/2024 Telephone [facility] [place] [id number] [facility] [address] [place] [phone] Matthew Acosta, RN Post Op (Home health coming, no issues: home health seeing patient without problems//Pain management: Taking Tramadol twice a day, patient feels tylenol doesn't really help too much//Blood Thinner: taking Aspirin 81 mg twice a day as prescribed//Last BM: no issues//Pt attended the TJR class. Attended zoom class//Pt has f/u appointment scheduled with the surgeon.scheduled appointment 03/31/[address] Marie) from Last 3 Months Immunizations Name Administration Dates Next Due INFLUENZA PF 65Y+ HIGH DOSE, TRIVALENT 0,02/07/2017,01/28/2016 INFLUENZA PF 65Y+ QUADRIVALENT HIGH-DOSE 021 INFLUENZA PF, QUADRIVALENT 12/04/2019 INFLUENZA, UNSPECIFIED FORMULATION 04/02/2011 PCV10 Pneumococcal (Non-us) 05/03/2012 PNEUMOCOCCAL CONJUGATE 20-VALENT (PCV20) 024 PNEUMOCOCCAL, UNSPECIFIED FORMULATION 05/03/2012 Family History Medical History Relation Comments No known problems Daughter 1 Drug abuse Daughter 2 Fentanyl, Heroin e Alcohol abuse Father Brain cancer Father Breast cancer Mother No known problems Sister 1 Heart disease Sister 2 Relation Status Comments Daughter 1 Alive Daughter 2 Alive Father (Age 62) Mother (Age 49) Sister 1 Alive Sister 2 Alive Social History Tobacco Use Types Packs/Day Years Used Date Smoking Tobacco: Former Cigarettes 1 15 1 1976 Smokeless Tobacco: Never Tobacco Cessation:Counseling Given: [...] Mass Index 32.44 06/02/2024 1:44 PM PST Plan of Treatment Upcoming Encounters Date Type Department Care Team (Late st Contact Info) Description 08/11/2024 4:00 PM PDT Office Visit [facility] [place] [address] [place] [address] [address] [place] [address] [place] [address] Health Maintenance Due Date Last Done Comments Hepatitis C Screening 1945 Vaccine: Dtap/Tdap/Td (1 - Tdap) 1965 Vaccine: Zoster (1 of 2) 1996 Vaccine: RSV Adult (1 - 1-dose 75+ series) 2021 Breast Cancer Screening 04/06/2023 04/06/2021, 07/21 COVID-19 Vaccine ( - season) 2023 06/12/2020, 05/15/2020 Vaccine: Influenza (#1) 2023 02/10/20, 12/04/2019, 04/18/2019, Additional history exists Adult Annual Wellness Visit 02/08/2024 02/09/2021 Med Mgmt: BUN 03/18/2025 03/18/2024, 03/10/2024 Med Mgmt: Cr 03/18/2025 03/18/2024, 03/10/2024 Med Mgmt: eGFR 03/18/2025 03/18/2024, 03/10/2024 Medication Management 03/18/2025 03/18/2024 Vaccine: Pneumococcal 50+ Completed 2023, 05/03/2012, 05/03/2012 Vaccine: Hib Aged Out No longer eligi ble based on patient's age to complete this topic Medical Devices Implanted Type Area Trustee Of Estate Device Identifier Shelf Expiration Date Model / Serial / Lot Imp Knee Fem Cr Lt Sz9 - [id number] Implanted:Qty: 1 on 03/17/2024 by Uziel Marie MD at [facility] Generic Left: Knee [employer]AN BI[employer]ET-9643 04/30/2033 [id number] / / [id number] Imp Knee Surf Artc L 10 8-11ab - [id number] Implanted:Qty: 1 on 03/17/2024 by Uziel Marie MD at [facility] Generic Left: Knee [employer]ET-9643 12/12/2028 [id number] / / [id number] Patella Component Knee 3 Peg Metal Persona [employer]se[employer] [id number] 35mm - [id number] Implanted:Qty: 1 on 03/17/2024 by Uziel Marie MD at [facility] Left: Knee [employer]ET-9643 11/30/2028 [id number] / / [id number] Tibial Baseplate Knee Porous Left Fixed Persona [employer]se[employer] [id number] - [id number] Implanted:Qty: 1 on 03/17/2024 by Uziel Marie MD at [facility] Left: Knee [employer]ET-9643 12/31/2033 [id number] / / [id number] Procedures Procedure Name Priority Date/Time Associated Diagnosis Comments BASIC METABOLIC PANEL Routine 03/18/2024 5:20 AM [facility] from Last 3 Months or Most Recently Relevant to Health Maintenance Results * (ABNORMAL) Basic Metabolic Panel (03/18/2024 5:20 AM PST) Na 140 136 - 145 mmol/L 03/18/2024 6:54 AM [facility] (CLIA [id number]) K 4.9 3.5 - 5.1 mmol/L 03/18/2024 6:54 AM [facility] (CLIA [id number]) Cl 112(H) 98 - 107 mmol/L 03/18/2024 6:54 AM [facility] (CLIA [id number]) CO2 26 21 - 32 mmol/L 03/18/2024 6:54 AM [facility] (CLIA [id number]) Comment:CO2 is interchangeab le with HCO3- (bicarbonate) for calculation of the anion gap. Anion Gap 2(L) 5 - 13 mmol/L 03/18/2024 6:54 AM [facility] (CLIA [id number]) Glucose 149(H) 74 - 106 mg/dL 03/18/2024 6:54 AM [facility] (CLIA [id number]) BUN 11 7 - 18 mg/dL 03/18/2024 6:54 AM [facility] (CLIA [id number]) Creatinine 0.76 0.60 - 1.30 mg/dL 03/18/2024 6:54 AM [facility] (CLIA [id number]) Calcium 9.0 8.5 - 10.1 mg/dL 03/18/2024 6:54 AM [facility] (CLIA [id number]) BUN/Creatinine Ratio 14.5 03/18/2024 6:54 AM [facility] (CLIA [id number]) eGFR 81 >=60 mL/min/1. 73m2 03/18/2024 6:54 AM [facility] (CLIA [id number]) Comment: GFR value was calculated using a new GFR equation effective since 04/19/21. This is a recommendation of the [place] [employer]ph[employer] and National Kidney Foundation. Clinical practice guidelines suggest the use of serum cystatin C as a confirmatory test for eGFR 45-59 ml/min/1.73m2 in adults who do not have markers of kidney disease; eGFR may be less accurate in this range. Blood Venipuncture / Unknown 03/18/2024 5:20 AM PST 03/18/2024 6:06 AM [facility] Rashi Castaneda MD LAB BLOOD ORDERABLES Final Res ult [facility] ([place] [id number]) [id number] [id number], [facility] [phone] from Last 3 Months or Most Recently Relevant to Health Maintenance Insurance PMF [employer] Advance Directives * Full Code (Latest Code Status on File) Date Activated Date Inactivated Comments 03/17/2024 7:21 PM 03/18/2024 2:35 PM Care Teams Bench Worker Binding Relationship Specialty [place] [address] [place] [address] PCP - General Family Medicine 02/11/24
--- OUTSIDE RECORDS SUMMARY | 2024-06-19 09:53 | XMS_ITS | Referral Summary ---
Author Organization [facility] Medical Office Building B Address [address] [place] [address] Care Team Providers Care Contract Loader Name Role Phone Robert Deleon MD Primary Care Provider [phone] Allergies Active Allergy Reactions Criticality Noted Date Comments Other Rash Medium PLASTICS Medications fluticasone propion-salmetero L (ADVAIR DISKUS) 100-50 mcg/dose diskus inhaler Inhale 1 puff as needed Rinse mouth with water after use. Do not swallow. Active spironolactone (ALDACTONE) 100 mg tablet Take 100 mg by mouth daily 2 Active azithromycin (ZITHROMAX) 250 mg tabletIndications :Mild intermittent asthma with exacerbation Take two tabs first day, then one tab daily x 4 days 6 tablet 2 Active benzonatate (TESSALON) 200 mg capsuleIndication s:Mild intermittent asthma with exacerbation Take 1 capsule (200 mg total) by mouth 3 (three) times a day as needed for cough 90 capsule 2 Active albuterol HFA (PROVENTIL HFA,VENTOLIN HFA,PROAIR HFA) 90 mcg/actuation inhalerIndication s:Acute viral syndrome INHALE 2 PUFFS BY MOUTH EVERY 4 HOURS NEEDED FOR WHEEZING OR SHORTNESS OF BREATH 18 g 3 Active Active Problems Problem Noted Date Diagnosed Date Positive colorectal cancer screening using Colog uard test 03/15/2021 Overview (03/15/2021): Added automatically from request for surgery [id number] Encounter for screening colonoscopy 03/15/2021 Overview (03/15/2021): Added automatically from request for surgery [id number] Laryngopharyngeal reflux (LPR) 05/30/2018 Assessment & Plan (05/30/2018 11:08 AM DANDY TENDER): Zantac 300 mg at bedtime Nasal saline (simply saline, Lil' noses, ocean, [place]) Flonase 2 sprays into each nostril while looking down over the sink, do not sniff in or blow nose after use. 64 ounces of caffeine free and soda free fluid daily Follow up in 2 months for rescope to monitor left pyriform recess LPR discussed and Handout provided Immunizations Immunization Administration Dates Next Due Influenza, Quadrivalent, Hig h Dose, Preservative Free, Intrr 02/09/2021 Influenza, Quadrivalent, Spl it, Preservative Free, Intramuscular 12/04/2019 Influenza, Trivalent, High D ose, Split, Preservative Free, Intramuscular 04/18/2019,02/07/2017,01/28/2016 Influenza, Unspecified 04/02/2011 Moderna SARS-CoV-2 Monovalen t Vaccination (12+ YRS) 06/12/2020,05/15/2020 Pneumococcal, Unspecified 05/03/2012 Social History Tobacco Use Types Packs/Day Years Used Date Smoking Tobacco: Former Cigarettes 1 965 - 1980 Smokeless Tobacco: Never Tobacco Cessation:Counseling Given: Not Answered Alcohol Use Standard Drinks/Week Comments No 0 (1 standard drink = 0.6 oz pur e alcohol) AUDIT-C Answer Date Recorded Q1: How often do you have a drink containing alc ohol? Monthly or less 03/18/2021 Q2: How many drinks containi ng alcohol do you have on a typical day when you are drinking? 1 or 2 03/18/2021 Q3: How often do you have si x or more drinks on one occasion? Never 03/18/2021 PHQ-2 Answer Date Recorded PHQ-2 Total Score (If total score is 3 or more points, staff should administer the PHQ-9) 0 10/20/2021 Personal Safety Answer Date Recorded Getting School Help Needed Not on file 05/25 Comments No Sex and Gender Information Value Date Recorded Sex Assigned at Not on file Legal Sex Female 8:45 PM DANDY TENDER Gender Identity Female 03/16/2021 9:07 AM DANDY TENDER Sexual Orientation Not on file Last Filed Vital Signs Vital Sign Reading Time Taken Comments Blood Pressure 102/50 01/02/2022 1:47 PM CDT Pulse 100 01/02/2022 1:47 PM CDT Temperature 37.2 C (99 F) 01/02/2022 1:47 PM CDT Respiratory Rate 18 01/02/2022 1:47 PM CDT Oxygen Saturation 97% 01/02/2022 1:47 PM CDT Inhaled Oxygen Concentration - - Weight 77.1 kg (170 lb) 01/02/2022 1:47 PM CDT Height 162.6 cm (5' 4.02 ) 01/02/2022 1:47 PM CD T Body Mass Index 29.16 01/02/2022 1:47 PM CDT Plan of Treatment Not on file Procedures Procedure Name Priority Date/Time Associated Diagnosis Comments SCREENING MAMMOGRAM BILATERAL W PILO Schedule Routine, Read Routine (OP Routine) 04/06/2021 1:04 PM DANDY TENDER Encounter for screening mammogram for malignant neoplasm of breast COLONOSCOPY 03/21/2021 9:28 AM DANDY TENDER from Last 3 Months or Most Recently Relevant to Health Maintenance Results * Screening Mammogram Bilateral W Pilo (04/06/2021 1:04 PM DANDY TENDER) Anatomical Region Laterality Modality Breast Bilateral Mammography 04/13/2021 8:22 AM DANDY TENDER Impressions 04/13/2021 8:22 AM DANDY TENDER There is no mammographic evidence of malignancy. A 1 year screening mammogram is recommended. BI-RADS: 2 - Benign. The patient has been or will be contacted. The patient will be entered into a reminder system with a target due date of 1 year for her next mammogram. Electronically signed by: Zhou Camp M.D. Narrative 04/13/2021 8:22 AM DANDY TENDER EXAMINATION: SCREENING MAMMOGRAM BILATERAL W PILO ORDERING HEALTHCARE PROVIDER: DIANE PERERA HISTORY: Routine screening mammography. COMPARISON: 07/21/2016, 06/04/2012 TECHNIQUE: CC and MLO views of the bilateral breasts and an XCCL view of the right breast were obtained with digital technique using breast tomosynthesis with C view. Computer aided detection was utilized. FINDINGS: DENSITY: The tissue of the bilateral breasts is heterogeneously dense, which may obscure small masses. BREASTS: There are benign-appearing scattered calcifications in both breasts. There are no suspicious masses, suspicious calcifications, or other suspicious findings in either breast. There has been no suspicious interval change. us Diane Perera SURGERY MANAGER IM MAMMO PROCEDURES Final Result * COLONOSCOPY (03/21/2021 9:28 AM DANDY TENDER) Anatomical Region Laterality Modality Other Narrative Procedure Note Tavares Ochoa MD - 03/21/2021 9:[address] [facility] Patient Name: Livingston Foster Procedure Date: 03/21/2021 9:28 AM Date of : 1945 Admit Type: Outpatient Age: 75 Gender: Female Attending MD: aTvares Ochoa M.D. Room: [facility] 2 Note Status: Finalized Patient Profile: Refer to note in patient chart for documentation of history and physical. Procedure: Colonoscopy Indications: This is the patient's first colonoscopy, Positive Cologuard test Referring MD: MARII Pedersen Providers: Tavares Ochoa M.D. Impression: - Hemorrhoids found on perianal exam. - Two 4 to 5 mm polyps in the descending colon andin the ascending colon, removed with a hot biopsy forceps. Resected and retrieved. - The examination was otherwise normal. Recommendation: - Discharge patient to home. - Resume previous diet. - Continue present medications. - Await pathology results. - Repeat colonoscopy in 5 years for surveillance. - Return to primary care physician as previously scheduled. Medicines: Propofol per Anesthesia Complications: No immediate complications. Estimated Blood Loss: Estimated blood loss: none. Procedure: Pre-Anesthesia Assessment: - This assessment was completed [Time ofAssessment] prior to the administration of sedation. The benefits, risks and alternatives of theprocedure and sedation were discussed and informed consentwas obtained. All questions were answered. Please referto the signed informed consent document in the medical record. The bowel preparation used was Miralax via single dose instruction. The bowel preparation used was bisacodyl tablets via single dose instruction.The scope was passed under direct vision. TheColonoscope [id number] was introduced through the anus and advanced to the the cecum, identified by appendiceal orifice and ileocecal valve. The colonoscopy was performed without difficulty. The patient tolerated the procedure well. The qualityof the bowel preparation was good. Findings: Hemorrhoids were found on perianal exam. Two sessile polyps were found in the descending colon and ascending colon. The polyps were 4 to 5 mm in size. These polyps were removedwith a hot biopsy forceps. Resection and retrieval were complete. Verification of patient identification for the specimen was done bythe physician and nurse using the patient's name and date.Estimated blood loss was minimal. The exam was otherwise without abnormality. Electronically signed by Tavares Ochoa M.D. Tavares Ochoa M.D. 03/21/2021 11:26:21 AM Number of Addenda: 0 Note Initiated On: 03/21/2021 9:28 AM Procedure Code(s): --- Professional --- 16062, Colonoscopy, flexible; with removal of tumor(s), polyp(s), or other lesion(s) by hot biopsy forceps Diagnosis Code(s): --- Professional --- R19.5, Other fecal abnormalities K63.5, Polyp of colon K64.9, Unspecified hemorrhoids CPT copyright 2019 [place] [employer]. All rights reserved. The codes documented in this report are preliminary and upon doorperson or luggage porter reviewmay be revised to meet current compliance requirements. Recognized by the [place] [employer] for promoting quality in endoscopy Tavares Ochoa MD ENDOSCOPY PROCEDURES Final Re sult from Last 3 Months or Most Recently Relevant to Health Maintenance Insurance [facility] [place] Advance Directives For more information, please contact: [phone] * Full Code (Latest Code Status on File) Date Activated Date Inactivated Comments 03/21/2021 10:39 AM 03/21/2021 4:36 PM Care Teams Contract Loader Relationship Specialty Start Date End Date [place] [address] PCP - General Family Medicine 01/02/20
--- OUTSIDE RECORDS SUMMARY | 2024-06-19 09:53 | XMS_ITS | Encounter Summary ---
Author Organization [facility] Address [address] [place] [address] Care Team Providers Care Deputy Jailer Name Role Phone Unavailable Primary Care Provider Unavailabl e Prior Encounters Date Type Department Care Team Description 09/08/2022 8:00 AM PDT Office Visit [facility] [address], [place] [address] Eveline Hi DDS Plan of Treatment Not on file Procedures Procedure Name Priority Date/Time Associated Diagnosis Comments 7 CERECFIRED CROWN ANT Routine 09/08/2022 8:00 AM PDT 7 CORE BUILDUP, INCLUDING ANY PINS WHEN REQUIRED Routine 09/08/2022 8:00 AM PDT ADDITIONAL X-RAY Routine 09/08/2022 8:00 AM PDT LIMITED ORAL EVALUATION - PROBLEM FOCUSED Routine 09/08/2022 8:00 AM PDT SINGLE X-RAY Routine 09/08/2022 8:00 AM PDT 6 ZIRCONIA CROWN Routine 09/08/2022 12:0 0 AM PDT 9 CEREC CROWN Routine 09/08/2022 12:00 AM PDT 8 CEREC CROWN Routine 09/08/2022 12:00 AM PDT Visit Diagnoses Not on file Insurance [facility] DISCOUNT [place] [id number]
--- OUTSIDE RECORDS SUMMARY | 2024-06-19 09:53 | XMS_ITS | Clinical Summary ---
Author Organization [facility] Medical Office Building B Address [address] [place] [address] Care Team Providers Care Creosoting Engineer Name Role Phone Robert Deleon MD Primary Care Provider [phone] Allergies Active Allergy Reactions Criticality Noted Date [...] (03/15/2021): Added automatically from request for surgery [id number] Encounter for screening colonoscopy 03/15/2021 Overview (03/15/2021): Added automatically from request for surgery [id number] Laryngopharyngeal reflux (LPR) 05/30/2018 Assessment & Plan (05/30/2018 11:08 AM BENEFITS PROCESSOR): Zantac 300 mg at bedtime Nasal saline (simply saline, Lil' noses, ocean, [place]) Flonase 2 sprays into each nostril while [...] Vaccination (12+ YRS) 06/12/2020,05/15/2020 Pneumococcal, Unspecified 05/03/2012 Surgical History Surgery Date Site/Laterality Comments CHOLECYSTECTOMY HYSTERECTOMY 04/02/1993 - 04/01/1994 Medical History Medical History Date Comments Asthma Family History Medical History Relation Name Comments Cancer Father Diabetes Father Breast cancer Mother Cancer Mother Thyroid disease Sister Relation Name Status Comments Father (Age 62) Mother (Age 49) Sister Social History Tobacco Use Types Packs/Day Years Used Date Smoking Tobacco: Former Cigarettes 1 965 - 1979 Smokeless Tobacco: Never Tobacco Cessation:Counseling Given: Not [...] on file Legal Sex Female 8:45 PM BENEFITS PROCESSOR Gender Identity Female 03/16/2021 9:07 AM BENEFITS PROCESSOR Sexual Orientation Not on file Obstetrics History Para Term AB IAB SAB Ectopic Multiple Livin g Live Births 2 2 2 Date Outcome GA Total Labor Labor/2nd/3rd Weight Sex Type Anes PTL Sandra A1 A5 Name Clin Term Term Last Filed Vital Signs Vital Sign Reading [...] 01/02/2022 1:47 PM CDT Plan of Treatment Health Maintenance Due Date Last Done Comments Hepatitis C Screening 1945 Osteoporosis Screening-Bone Density Scan 1945 DTaP/Tdap/Td Vaccine (1 - Tdap) 1957 Hepatitis B Screening 1964 Pneumococcal vaccine 65+ (1 of 2 - PCV) 1965 05/03/2012 Zoster Vaccine (1 of 2) 1996 Well Visit 65+ 02/09/2022 02/09/2021 Depression Screening 10/20/2022 10/20/2021, 02/09/2021, 12/04/2019 Fall Risk Assessment 10/20/2022 10/20/2021, 03/21/2021, 02/09/2021, Additional history exists Covid-19 Vaccine (3 - 2023-2 5 season) 2023 06/12/2020, 05/15/2020 Influenza Vaccine (#1) 2023 1, 12/04/2019, 04/18/2019, Additional history exists Colon Cancer Screening-DNA Stool 03/21/2024 03/21/20 21, 02/21/2021 Colon Cancer Screening-CT Colonography Discontinued 03/21/2021 Colon Cancer Screening-Colonoscopy Discontinued 03/21/2021 Colon Cancer Screening-FIT Discontinued 03/21/2021, Colon Cancer Screening-Sigmoidoscopy Discontinued 03/21/2021 Breast Cancer Screening-Mammogram Discontinued 022 Procedures Procedure Name Priority Date/Time Associated Diagnosis Comments SCREENING MAMMOGRAM BILATERAL W PILO Schedule Routine, Read Routine (OP Routine) 04/06/2021 1:04 PM BENEFITS PROCESSOR Encounter for screening mammogram for malignant neoplasm of breast COLONOSCOPY 03/21/2021 9:28 AM BENEFITS PROCESSOR from Last 3 Months or Most Recently Relevant to Health Maintenance Results * Screening Mammogram Bilateral W Pilo (04/06/2021 1:04 PM BENEFITS PROCESSOR) Anatomical Region Laterality Modality Breast Bilateral Mammography 04/13/2021 8:22 AM BENEFITS PROCESSOR Impressions 04/13/2021 8:22 AM BENEFITS PROCESSOR There is no mammographic evidence of malignancy. A 1 year screening mammogram is recommended. BI-RADS: 2 - Benign. The patient has been or will be contacted. The patient will be entered into a reminder system with a target due date of 1 year for her next mammogram. Electronically signed by: Zhou Camp M.D. Narrative 04/13/2021 8:22 AM BENEFITS PROCESSOR EXAMINATION: SCREENING MAMMOGRAM BILATERAL W PILO ORDERING [...] no suspicious interval change. us Diane Perera BLOWER BLAST FURNACE IMG MAMMO PROCEDURES Final Result * COLONOSCOPY (03/21/2021 9:28 AM BENEFITS PROCESSOR) Anatomical Region Laterality Modality Other Narrative Procedure Note Tavares Ochoa MD - 03/21/2021 9:28 AM CST [facility] Patient Name: Fela Ayala Procedure Date: 03/21/2021 9:28 AM Date of : 1945 Admit Type: Outpatient Age: 75 Gender: Female Attending MD: Tavares Ochoa M.D. Room: [facility] 2 Note Status: Finalized Patient [...] scope was passed under direct vision. TheColonoscope [id number] was introduced through the anus and advanced [...] 9:28 AM Procedure Code(s): --- Professional --- 87128, Colonoscopy, flexible; with removal of tumor(s), polyp(s), or other lesion(s) by hot biopsy forceps Diagnosis Code(s): --- Professional --- R19.5, Other fecal abnormalities K63.5, Polyp of colon K64.9, Unspecified hemorrhoids CPT copyright 2019 [place] [employer]. All rights reserved. The codes documented in this report are preliminary and upon broadcast engineer reviewmay be revised to meet current compliance requirements. Recognized by the [place] [employer] Gastrointestinal End[employer] for promoting quality in endoscopy Tavares Ochoa MD ENDOSCOPY PROCEDURES Final Re sult from Last 3 Months or Most Recently Relevant to Health Maintenance Insurance [facility] Advance Directives For more information, please contact: [phone] * Full Code (Latest Code Status on File) Date Activated Date Inactivated Comments 03/21/2021 10:39 AM 03/21/2021 4:36 PM Care Teams Creosoting Engineer Relationship Specialty Start Date End Date Robert Deleon MD [address] [place] [address] PCP - General Family Medicine 01/02/20
--- OUTSIDE RECORDS SUMMARY | 2024-06-19 10:01 | XMS_ITS | CONTINUITY OF CARE DOCUMENT ---
Author Name jett frausto Address Unknown Organization [facility] Address [address] [place] [address] Phone [phone] Care Team Providers Care Sales Ledger Administrator Name Role Phone Amor MONTES DE OCA, Roberta Unavailable [phone] Julianna Olguin Md Unavailable [phone] Julianna Olguin Md Unavailable [phone] PROBLEMS Condition Status Date Provider Notes Shortness of breath nl nuclear stress test active 2014 Roberta Chinchilla MD Asthma active Roberta Chinchilla MD Abnormal electrocardiogram active Roberta kemp MD Palpitations few pvcs on holter active Fritz Chinchilla MD Fatigue active Roberta Chinchilla MD ENCOUNTERS Date Type Provider Location Encounter Diag nosis - In-person encounter Office Visit Roberta Chinchilla MD [facility] Fatigue - In-person encounter Office Visit Roberta Chinchilla MD [facility] Shortness of breath nl nuclear stress testPalpitations few pvcs on holter - In-person encounter Office Visit Roberta Chinchilla MD [facility] Shortness of breath nl nuclear stress [...] as percent of blood leukocytes 68.7 % [facility] - 3 Absolute Neutrophils 5.6 CELLS/UL Link[facility] [...] Bonilla smoking history, total pack/day 2 Octaviano Bonilla cigarette use yes JonathanEstellajada Bonilla smoking status Former smoker Kaylaascencioncassidy Emmy finn FAMILY HISTORY Family Member Condition Mother Family History Unkno wn Daughter Negative FH of Coron tom Artery Disease INSURANCE PROVIDERS Payer name Policy type / Coverage type [place] red libertarian ID [place] MED[place] Medicare [id number] TREATMENT PLAN Date Name Performer Cardiology Roberta [...] Name Provider Procedure Notes S tatus SNOMED-CT: 88125069 Physical Exam, Performed: Pulse Exam of Foot Roberta Chinchilla MD completed SNOMED-CT: 74539212 Physical Exam, Performed: Pulse Exam of Foot Roberat Chinchilla MD completed EKG Roberta Chinchilla MD completed SNOMED-CT: [id number] [id number] Current Medications Documented Roberta Chinchilla MD completed EKG Roberta Chinchilla MD completed
== END 2024-06-19 10:08 | disposition home or self-care (01) ==
PROVIDERS: Emergency Provider Nurse Practitioner
DX: J45.909 Unspecified asthma, uncomplicated (principal); J06.9 Acute upper respiratory infection, unspecified; Z20.822 Contact with and (suspected) exposure to COVID-19; Z87.891 Personal history of nicotine dependence; M17.12 Unilateral primary osteoarthritis, left knee
CPT/HCPCS: 87426; 87804; 99213; G0463